=== PATIENT | female | born 1965 | race Caucasian/White ===

== ENCOUNTER 2017-06-05 09:03 | Emergency (ER) | payer OTHER ==
[~2017-06-05] VITALS: Ht 157.5 cm; Wt 70.0 kg
[2017-06-05 09:05] VITALS: Ht 157.5 cm; Wt 70.0 kg
[2017-06-05] MEDS ORDERED: IBUPROFEN 600 MG TAB PO ONE (09:30)
[2017-06-05] MEDS ORDERED: HYDROCODONE/APAP (5/325) TAB PO ONE (09:30)
--- NOTE | 2017-06-05 10:00 | RADRPT ---
PROCEDURE: XR Wrist. CLINICAL INDICATION: Pain. TECHNIQUE: AP, lateral and oblique views of the right wrist were performed. COMPARISON: No prior studies are available for comparison. FINDINGS: No evidence of fracture, dislocation, or subluxation is seen. The bones appear well mineralized. The joint spaces are well preserved. Mild soft tissue swelling is present. IMPRESSION: No acute fracture or dislocation. Mild soft tissue swelling. RPTAT: QQ. .Haydee Salgado MD, MD Date Time Electronically viewed and signed by .Haydee Salgado MD, on 06/05/2017 09:59 .F/
[2017-06-05] MEDS ORDERED: IBUP-1542 PO (10:36)
[2017-06-05] MEDS ORDERED: TRAM50TA2 PO (10:36)
[2017-06-05] MEDS ORDERED: PRED20TA PO (10:36)
--- NOTE | 2017-06-23 12:31 | ERD ---
ER Documentation Chief Complaint Date/Time DATE Of dictation: 06/23/17 . Date of service 06/05/2017 TIME: 12:29 Chief Complaint right hand pain x 5 days, rad whole arm HPI 52-year-old female complains of right wrist pain for last 5 days. She does use her wrist a lot at work. She denies any fall, restricted range of motion weakness or redness or fevers per ROS All systems reviewed and are negative except as per history of present illness. Medications Home Meds Active Scripts Prednisone* (Prednisone*) 20 Mg Tab, 40 MG PO DAILY for 4 Days, TAB Prov:ALEXEI UDMAS MD 06/05/17 Tramadol HCl (Tramadol HCl) 50 Mg Tablet, 50 MG PO Q4 Y for PAIN, #20 TAB Prov:ALEXEI DUMAS MD 06/05/17 Ibuprofen* (Motrin*) 600 Mg Tab, 600 MG PO Q6, #20 TAB Prov:ALEXEI DUMAS MD 06/05/17 PMhx/Soc Medical and Surgical Hx: Unable to obtain Hx Alcohol Use: No Hx Substance Use: No Hx Tobacco Use: No Smoking Status: Never smoker Physical Exam Physical Exam Const: []Letter, [id number]. Head: Atraumatic Eyes: Normal Conjunctiva ENT: Normal External Ears, Nose and Mouth. Neck: Full range of motion..~ No meningismus. Resp: Clear to auscultation bilaterally Cardio: Regular rate and rhythm, no murmurs Abd: Soft, non tender, non distended. Normal bowel sounds Skin: No petechiae or rashes Back: No midline or flank tenderness Ext: No cyanosis, or edemaBut there is some mild tenderness primarily over the dorsum of the right wrist joint. There is no restricted range of motion weakness or warmth erythema or effusion. Neur: Awake and alert Psych: Normal Mood and Affect Results 24 hrs Current Medications Medications (Trade) Dose Ordered Sig/Adilson Route PRN Reason Start Time Stop Time Status Last Admin Dose Admin Acetaminophen/ Hydrocodone Bitart ([place] (5/325)) 1 tab ONCE ONCE PO 06/05/17 09:30 06/05/17 09:31 DC 06/05/17 09:55 Ibuprofen (Motrin) 600 mg ONCE ONCE PO 06/05/17 09:30 06/05/17 09:31 DC 06/05/17 09:55 Procedures/MDM X-ray right wrist 3V Interpreted by me: Scaphoid: [Normal] Bones: [No fracture] Joints: [No dislocation] Foreign body: [None]. Impression-normal right wrist x-ray Patient presents with right wrist pain without evidence of fracture, dislocation , bacterial infection, deficits or ischemia. She will be treated for tendinitis with instructions for ice and rest and limited use and primary care and orthopedic follow-up. The patient was stable with no new complaints during the ER course. Clinically, there is no current evidence to suggest meningitis, sepsis, acute abdomen, pneumonia, acute coronary syndrome, pulmonary embolism, or any other emergent condition appearing to require further evaluation or hospitalization. The patient should certainly return for any new or worsening symptoms per the aftercare instructions. They should otherwise follow-up with her primary care doctor for reevaluation this week. Departure Diagnosis: Primary Impression: Wrist pain, right Condition: Stable Patient Instructions: Arthralgia, Tendonitis Additional Instructions: X-ray normal. Likely tendinitis or sprain. Recheck with primary doctor or orthopedist this week. Return for fevers, redness, new symptoms. Recommend ice at home. ALEXEI DUMAS MD Jun 23, 2017 12:31
== END 2017-06-05 10:56 | disposition home or self-care (01) ==
LOC: FTE 09:03
DX: M25.531 Pain in right wrist (principal)